=== PATIENT | female | born 1970 | race African-American/Black ===

== ENCOUNTER 2022-06-11 09:19 | Outpatient (CLI) | payer BC ==
[2022-06-11] MEDS ORDERED: Heparin 1,000 UNITS/ML VIAL ONE (10:57)
== END 2022-06-11 09:20 | disposition home or self-care (01) ==
LOC: NM 09:19
PROVIDERS: ATTEND Family Medicine
DX: R93.2 Abnormal findings on diagnostic imaging of liver and biliary tract (principal)
CPT/HCPCS: 78803; A9560; J1644

== ENCOUNTER 2022-06-22 12:30 | Outpatient (CLI) | payer BC | END 2022-06-22 12:31 | disposition home or self-care (01) | LOC: PET 12:30 | PROVIDERS: ATTEND Family Medicine | DX: R16.0 Hepatomegaly, not elsewhere classified (principal); K76.9 Liver disease, unspecified | CPT/HCPCS: 78815; A9552 ==